=== PATIENT | male | born 1965 | race Caucasian/White ===

== ENCOUNTER 2025-03-30 11:05 | Emergency (ER) | payer BC, SELFPAY ==
[2025-03-30 11:15] VITALS: BP 154/104
[2025-03-30 11:40] LABS: Hematocrit 45.5 % (39.0-52.0); Hemoglobin 15.2 g/dL (13.0-18.0); Mean Corp Hgb Conc. 33.4 g/dL (33.0-37.0); Mean Corpuscular Volume 86.5 fL (80.0-94.0); Nucleated Red Blood Cells % 0 % (-); Platelet Count 264 10^3/uL (130-400); Red Cell Dist. Width 13.9 % (11.5-14.5)
[2025-03-30 11:55] LABS: ALT (SGPT) 20 U/L (0-50); AST (SGOT) 22 U/L (17-59); Albumin 4.8 g/dl (3.5-5.0); Alkaline Phosphatase 50 U/L (38-126); Blood Urea Nitrogen 13 mg/dl (9-20); Calcium 9.5 mg/dl (8.4-10.2); Carbon Dioxide 29 mmol/L (22-30); Chloride 97 mmol/L (98-107); Glucose 127 mg/dl (70-99); Lipase 144 U/L (23-300); Potassium 4.0 mmol/L (3.5-5.1); Sodium 132 mmol/L (135-145); Total Protein 7.6 g/dl (6.3-8.2); eGFR > 60.00
[2025-03-30 12:04] LABS: Troponin I < 0.012 ng/ml
--- NOTE | 2025-03-30 13:34 | ED.GENMED ---
History of Present Illness
General
Chief Complaint: Chest Pain
Source: patient
Exam Limitations: none
Time Seen by Provider: 03/30/25 13:33
Nursing documentation reviewed up to this point in time: agreed with
History of Present Illness
History of Present Illness:
59 yo male w no significant past medical here for episode of left lateral pectoral muscle 'pinching pain' while laughing with a colleague at work at 10 a.m. Became pale, sweaty and light headed for a short time, no LOC. Left pectoral area feels
'tight' but not painful as it was.
Past History
Past History
ED Past Medical History: Other
Social History
Tobacco: Non-smoker
Alcohol: Occasional
Family History
Family History: Hypertension
Review of Systems
Review of Systems
Allergies reviewed?: Yes
All Other Systems: ROS reviewed and negative except as documented in HPI and ROS
Phy Exam
Physical Exam
Physical Exam:
Take care GENERAL: No acute distress. A&Ox3.
CONSTITUTIONAL: Afebrile.
EYES: clear, conjunctivae normal
ENMT: moist mucus membranes
RESPIRATORY: Regular respirations, nonlabored, lungs clear.
CARDIOVASCULAR: Regular rate and rhythm, no murmurs, no rubs.
GI: Soft, nontender, normal BS
MUSCULOSKELETAL: Unable to reproduce left pectoral pain with palpation or movement. Moves with ease. Well perfused.
SKIN: Warm, dry, pink
PSYCH: Normal mood and affect. Well kept, interactive and appropriate
NEUROLOGIC: Awake, alert and oriented. No focal neurological deficits
Scores
Heart Score for Chest Pain Patients
STEMI patient?: Not applicable
Course
Orders/Labs/Results
Orders:
Orders
03/30/25 11:10
EKG [Electrocardiogram (*1)] Urgent
Reason for Study: Chest Pain
EKG- Treatment ONCE
03/30/25 11:24
Complete Blood Count/With Diff Urgent
Comprehensive Metabolic Panel Urgent
Lipase Urgent
Troponin I Urgent
03/30/25 14:01
CR Chest - 2 Views Urgent
Comment:
Reason For Exam: L chest pain
03/30/25 14:41
Troponin I Urgent
03/30/25 14:43
Lorazepam [Ativan] 1 mg PO NOW STA
Abnormal Lab Results
03/30/25
11:24
Sodium 132 L mmol/L
(135-145)
Chloride 97 L mmol/L
(98-107)
Glucose 127 H mg/dl
(70-99)
03/30/25 11:24
03/30/25 11:24
Vital Signs
Initial and Last Documented VS:
Initial Vital Signs
Temp Pulse Resp BP Pulse Ox
97.1 F 88 16 154/104 98
03/30/25 11:15 03/30/25 11:15 03/30/25 11:15 03/30/25 11:15 03/30/25 11:15
Last Documented Vital Signs
Temp Pulse Resp BP Pulse Ox
97.1 F 52 13 121/76 97
03/30/25 11:15 03/30/25 15:45 03/30/25 15:45 03/30/25 15:00 03/30/25 15:45
MDM/Problems Addressed
Differential Diagnosis Includes:
Muscle spasm, vasovagal episode, MO
MDM/Problems Addressed:
59 yo male w no significant past medical here for episode of left lateral pectoral muscle 'pinching pain' while laughing with a colleague at work at 10 a.m. Became pale, sweaty and light headed for a short time, no LOC. Left pectoral area feels
'tight' but not painful as it was.
EKG Sinus bradycardia
2:40 p.m.
Pt extremely anxious, mom and maternal grandfather both in 60's of heart attack.
Requesting something for anxiety, Ativan ordered
CBC, CMP normal
Troponin normal
3:40 p.m.
CXR NAD
Troponin #2 WNL
Discussed results with pt and .
Referred to cardiac hotline
Pt reassured. Stable for discharge
*Pulse Oximetry
SaO2: 98
Oxygen Mode of Delivery: Room air
Patient hypoxic: no
*EKG
EKG Intrepretation Date: 03/30/25
Interpretation: abnormal
Heart Rate: 55
Rate: bradycardiac
Rhythm: sinus
[place]: normal axis
Interval: normal interval
QRS Pattern: normal QRS
Ischemia: no ischemia
*Critical Care Note
Total Time (30-74mins, 75-104mins- exclusive of procedures): Not Applicable
ED Attending Note
-
Portions of this chart may have been created with voice recognition software.� Occasional wrong word or��sound alike� substitutions may have occurred due to the inherent limitations of voice recognition software.
Discharge Plan
Departure
Patient Disposition: Home (Routine Discharge)
Date of Disposition: 03/30/25
Time of Disposition: 15:43
Patient with high blood pressure during this ER visit?: No
Condition: Good
Discharge Problem:
Atypical chest pain, Vaso-vagal reaction
Instructions: Chest Pain That Is Not Caused by the Heart (DC), Chest Pain CBC Follow Up
Prescriptions:
No Action
sulfamethoxazole-trimethoprim 1 EACH tablet
1 ea PO BID
escitalopram oxalate 10 MG tablet
15 mg PO DAILY
doxycycline hyclate 100 MG capsule
100 mg PO Q12 Qty: 60 0RF
Referrals:
Jeramy Ceballos CRNP [Family Provider, Internal Medicine]
Marivel Kyle MD [Active, Cardiology] - Next open appointment
Activity Restrictions/Additional Instructions:
As discussed, nothing worrisome, specifically no sign of a heart attack or injury to the heart.
Someone from the Cardiology group will call you in the next couple days to make an appointment for more thorough cardiac evaluation.
As we discussed, you most likely had a 'vaso vagal response' to the sudden pain in your chest.
Interventions
Interventions:
*Risk Screen - Suicide Last Done: 03/30/25 11:15
*General Assessment Last Done: 03/30/25 15:10
*ED COVID-19 Vaccine History Last Done: 03/30/25 11:15
*ED Influenza Vaccine History Last Done: 03/30/25 11:15
[facility] Fall Risk Assessment Tool Last Done: 03/30/25 15:10
*Nursing Disposition Last Done: 03/30/25 15:54
ED- Cardiac Assessment Last Done: 03/30/25 15:09
Discharge Date and Time
Discharge Date/Time: 03/30/25 15:55
Print Language: ARMENIAN
[2025-03-30 14:41] VITALS: BP 122/80
[2025-03-30] MEDS: ATIVAN 1 MG PO (14:52)
[2025-03-30 15:00] VITALS: BP 121/76
[2025-03-30 15:18] LABS: Troponin I < 0.012 ng/ml
== END 2025-03-30 15:55 | disposition home or self-care (01) ==
LOC: EMR 11:05
PROVIDERS: Registered Nurse; Student in an Organized Health Care Education/Training Program; EMERGENCY PHYSICIAN Emergency Medicine; FAMILY PHYSICIAN Registered Nurse
DX: R07.89 Other chest pain (principal); R55 Syncope and collapse; F41.9 Anxiety disorder, unspecified
CPT/HCPCS: 99285; 71046; 80053; 83690; 84484; 85025; 93005

== ENCOUNTER → 2025-04-12 15:49 | Outpatient (REF) | payer BC, SELFPAY | LOC: RCS 15:49 | PROVIDERS: ATTENDING PHYSICIAN Internal Medicine Cardiovascular Disease; FAMILY PHYSICIAN Registered Nurse | DX: R55 Syncope and collapse (principal); R94.31 Abnormal electrocardiogram [ECG] [EKG] | CPT/HCPCS: 93306 ==

== ENCOUNTER → 2025-04-13 14:05 | Outpatient (REF) | payer BC, SELFPAY | LOC: RCS 14:05 | PROVIDERS: ATTENDING PHYSICIAN Internal Medicine Cardiovascular Disease; FAMILY PHYSICIAN Registered Nurse | DX: R07.2 Precordial pain (principal) | CPT/HCPCS: 93017; 93350 ==